=== PATIENT | male | born 1995 | race Hispanic/Latino ===

== ENCOUNTER 2017-12-18 00:54 | Emergency (ER) | payer OTHER ==
[2017-12-18] MEDS: KETOROLAC 60 MG/2 ML VIAL (J1885) IM (01:43)
== END 2017-12-18 02:11 | disposition home or self-care (01) ==
LOC: M ED 00:54
DX: S30.0XXA Contusion of lower back and pelvis, initial encounter (principal); W18.2XXA Fall in (into) shower or empty bathtub, initial encounter; Y92.012 Bathroom of single-family (private) house as the place of occurrence of the external cause
CPT/HCPCS: J1885

== ENCOUNTER → 2018-03-29 | Outpatient (REF) | payer OTHER ==
[2018-03-29 15:23] LABS: SEMEN APPEARANCE OPAQUE (OPAQUE); SEMEN VISCOSITY LIQUID (LIQUID); SEMEN VOLUME 2.3 ml (4.0-5.0)
[2018-03-29 15:24] LABS: PROGRESSIVE MOTILITY (a) 9 % (>=32); SPERM CONCENTRATION 21.2 M/ml (>=15.0); WBC CONCENTRATION >1 M/ml (<=1 M/ml)
[2018-03-29 15:25] LABS: % NORMAL FORMS < 4 % (>=4); IMMOTILITY 77 %; NON PROGRESSIVE MOTILITY (c) 14 %; SPERM# 48.7 M/Ejac (>=39); TOTAL FUNCTIONAL 0.3 M/Ejac.; TOTAL MOTILITY 23 % (>=40); TOTAL PROGRESSIVE SPERM 4.3 M/Ejac.
== END ==
LOC: M LAB REF 14:10
DX: N46.9 Male infertility, unspecified (principal)

== ENCOUNTER → 2018-07-05 | Outpatient (REF) | payer OTHER ==
[~2018-07-05] MED LIST: IBUP80TA PO
[2018-07-05 12:18] LABS: SEMEN APPEARANCE OPAQUE (OPAQUE); SEMEN VISCOSITY VISCOUS (LIQUID); SEMEN VOLUME 1.2 ml (4.0-5.0); WBC CONCENTRATION >1 M/ml (<=1 M/ml)
[2018-07-05 12:19] LABS: SPERM CONCENTRATION 39.7 M/ml (>=15.0)
== END ==
LOC: M LAB REF 11:38
PROVIDERS: ATTEND Obstetrics & Gynecology
DX: N46.8 Other male infertility (principal)

== ENCOUNTER 2018-12-07 12:04 | Emergency (ER) | payer OTHER ==
[~2018-12-07] VITALS: Ht 175.3 cm; Wt 92.3 kg
[2018-12-07 14:00] VITALS: BP 122/78
== END 2018-12-07 14:00 | disposition home or self-care (01) ==
LOC: M ED 12:04
DX: J06.9 Acute upper respiratory infection, unspecified (principal)